=== PATIENT | female | born 1985 ===

== ENCOUNTER 2023-03-06 14:24 | Emergency (ER) | payer OTHER ==
[~2023-03-06] VITALS: Ht 160 cm; Wt 65.8 kg
[2023-03-06 14:40] VITALS: BP 119/83
[2023-03-06] MEDS ORDERED: Prednisone20 MG PO (14:45)
[2023-03-06] MEDS ORDERED: Amoxicillin500 MG PO (14:45)
== END 2023-03-06 14:47 | disposition home or self-care (01) ==
LOC: ER 14:24
DX: K04.7 Periapical abscess without sinus (principal); L23.7 Allergic contact dermatitis due to plants, except food
CPT/HCPCS: 99282